=== PATIENT | male | born 1980 ===

== ENCOUNTER 2019-04-02 19:06 | Emergency (ER) | payer OTHER ==
[2019-04-02] MEDS ORDERED: Sodium Chloride 0.9% 1,000 ML IV STA (20:05)
[2019-04-02 20:43] LABS: BASO % 0.1 % (0.0-2.0); HEMOGLOBIN 15.3 g/dL (12.0-18.0); INR 1.2; LYMPH # 0.7 K/uL (1.0-4.3); LYMPH % 5.1 % (20.0-40.0); MEAN CELL VOLUME 85.9 fl (80.0-94.0); MEAN CORPUSCULAR HEMOGLOBIN 29.3 pg (27.0-31.0); MONO # 0.7 K/uL (0.0-0.8); MONO % 5.5 % (0.0-10.0); NEUT # 11.7 K/uL (1.8-7.0); NEUT % 89.3 % (50.0-75.0); PLATELET COUNT 238 K/uL (130-400); PROTHROMBIN TIME 13.4 Seconds (9.8-13.1); RBC 5.23 Mil/uL (4.40-5.90); RED CELL DISTRIBUTION WIDTH 14.7 % (11.5-14.5)
[2019-04-02 20:44] LABS: VENOUS BLOOD GAS BASE EXCESS 3.5 mmol/L (0.0-2.0); VENOUS BLOOD GAS PCO2 47 mmHg (40-60); VENOUS BLOOD GAS PO2 19 mm/Hg (30-55)
[2019-04-02 20:46] LABS: PARTIAL THROMBOPLASTIN TIME 30.4 Seconds (25.6-37.1)
[2019-04-02 20:48] LABS: ALB/GLOB RATIO 1.5 (1.0-2.1); ALBUMIN 4.7 g/dL (3.5-5.0); ALT/SGPT 24 U/L (21-72); AST/SGOT 20 U/L (17-59); BLOOD UREA NITROGEN 13 mg/dl (9-20); GFR NON-AFRICAN AMERICAN > 60
[2019-04-02 20:55] LABS: SQUAMOUS EPITHIAL < 1 /hpf (0-5); URINE BACTERIA RARE (<OCC); URINE BILIRUBIN NEGATIVE (NEGATIVE); URINE BLOOD SMALL (NEGATIVE); URINE CLARITY SLIGHTY-CLOUDY (Clear); URINE COLOR YELLOW (YELLOW); URINE GLUCOSE (UA) NEG (NEGATIVE); URINE LEUKOCYTE ESTERASE NEG Leu/uL (Negative); URINE PROTEIN NEGATIVE (NEGATIVE); URINE UROBILINOGEN 0.2-1.0 mg/dL (0.2-1.0)
[2019-04-02] MEDS ORDERED: Iohexol 300 100 ML IJ ONE (20:55)
[2019-04-02] MEDS ORDERED: Sodium Chloride 0.9% 50 ML IV ONE (20:56)
--- NOTE | 2019-04-02 21:03 | ED PDOC ---
HPI: General Adult Time Seen by Provider: 04/02/19 19:10 Chief Complaint (Nursing): Fever Chief Complaint (Provider): Headache, fever History Per: Patient History/Exam Limitations: no limitations Onset/Duration Of Symptoms: Days Have you had recent travel within the past 21 days to any of the following count [place]: [place], [place], [place] or [place]?: No Current Symptoms Are (Timing): Still Present Additional Complaint(s): 38yo male, with history of CVA (while in [place]), comes to ER reporting a headache x 2 weeks.. Patient reports his current headache and sore throat is associated with fever, and minimal intermittent numbness in his left arm which has resolved. Patient denies any weakness, vomiting or diarrhea. He reports some sore throat with swallowing and bodyaches as well. Patient denies any nausea, vomiting or diarrhea. No additional complaints. Past Medical History Reviewed: Historical Data, Nursing Documentation, Vital Signs Vital Signs: Last Vital Signs Temp 102.2 F H 04/02/19 20:33 Pulse 138 H 04/02/19 19:12 Resp 20 04/02/19 19:12 BP 123/73 04/02/19 19:12 Pulse Ox 95 04/02/19 19:12 Primary Care Provider: FAMILY PROVIDER,NO - Medical History PMH: CVA - Surgical History Surgical History: No Surg Hx - Family History Family History: States: No Known Family Hx - Social History Current smoker - smoking cessation education provided: No Alcohol: None Drugs: Denies - Home Medications Home Medications: Ambulatory Orders Medication Instructions Recorded Amoxicillin/Clavulanate [Augmentin 1 tab PO BID #20 tab 04/02/19 875 MG-125 MG] - Allergies Allergies/Adverse Reactions: Allergies Allergy/AdvReac Type Severity Reaction Status Date / Time No Known Allergies Allergy Verified 04/02/19 19:17 Review of Systems ROS Statement: Except As Marked, All Systems Reviewed And Found Negative Constitutional: Positive for: Fever ENT: Positive for: Throat Pain Gastrointestinal: Negative for: Nausea, Vomiting, Diarrhea Musculoskeletal: Negative for: Neck Pain Neurological: Positive for: Numbness (intermittently in left arm), Headache. Negative for: Weakness Physical Exam - Reviewed Nursing Documentation Reviewed: Yes Vital Signs Reviewed: Yes (febrile, tachy) - Physical Exam Appears: Positive for: Non-toxic, No Acute Distress (appears comforable in no distress) Head Exam: Positive for: ATRAUMATIC, NORMAL INSPECTION, NORMOCEPHALIC Skin: Positive for: Normal Color, Warm, DRY Eye Exam: Positive for: EOMI, Normal appearance, PERRL ENT: Positive for: Normal ENT Inspection Neck: Positive for: Normal, Painless ROM, Supple. Negative for: Pain On Movement Of Neck Cardiovascular/Chest: Positive for: Tachycardia Respiratory: Positive for: Normal Breath Sounds. Negative for: Respiratory Dist ress Gastrointestinal/Abdominal: Positive for: Normal Exam, Soft Back: Positive for: Normal Inspection Extremity: Positive for: Normal ROM Neurological/Psych: Positive for: Awake, Alert, Normal Tone, Symmetric/Intact Strength, Cerebellar Tests (normal), underwriter mortgage loan II-XII (intact). Negative for: Motor/Sensory Deficits - Laboratory Results Result Diagrams: 04/02/19:04/02/19:33 Lab Results: pO2 19 mm/Hg (30-55) L 04/02/19 20:40 VBG pH 7.40 (7.32-7.43) 04/02/19 20:40 VBG pCO2 47 mmHg (40-60) 04/02/19 20:40 VBG HCO3 25.8 mmol/L 04/02/19 20:40 VBG Total CO2 30.5 mmol/L (22-28) H 04/02/19 20:40 VBG O2 Sat (Calc) 50.8 % (40-65) 04/02/19 20:40 VBG Base Excess 3.5 mmol/L (0.0-2.0) H 04/02/19 20:40 VBG Potassium 3.7 mmol/L (3.6-5.2) 04/02/19 20:40 Sodium 137.0 mmol/L (132-148) 04/02/19 20:40 Chloride 104.0 mmol/L (98-107) 04/02/19 20:40 Glucose 119 mg/dL (75-110) H 04/02/19 20:40 Lactate 1.3 mmol/L (0.7-2.1) 04/02/19 20:40 FiO2 21.0 % 04/02/19 20:40 PT 13.4 Seconds (9.8-13.1) H 04/02/19: INR 1.2 05/20/19 20:33 APTT 30.4 Seconds (25.6-37.1) 04/02/19 20:33 Total Bilirubin 0.4 mg/dl (0.2-1.3) 04/02/19 20:33 AST 20 U/L (17-59) 04/02/19 20:33 ALT 24 U/L (21-72) 04/02/19 20:33 Alkaline Phosphatase 59 U/L (38-126) 04/02/19 20: Total Protein 7.9 G/DL (6.3-8.2) 04/02/19 20:33 Albumin 4.7 g/dL (3.5-5.0) 04/02/19: Globulin 3.2 gm/dL (2.2-3.9) 04/02/19 20: Albumin/Globulin Ratio 1.5 (1.0-2.1) 04/02/19 20:33 - ECG O2 Sat by Pulse Oximetry: 95 (RA) Pulse Ox Interpretation: Normal Medical Decision Making Medical Decision Making: Impression: Headache, fever , sore throat rule out strep, flu, intracranial abnormality Plan: -- Labs -- CT HEad w/o contrast -- Rapid flu -- Rapid strep -- Tylenol 975mg PO -- IV Fluids 2110 Rapid strep positive 2146 CT Head FINDINGS: BRAIN No acute intraparenchymal hemorrhage. No mass lesion. No abnormal enhancement. No CT evidence for acute territorial infarct. No midline shift or extra-axial collections. VENTRICLES: No hydrocephalus. ORBITS: The orbits are unremarkable. SINUSES AND MASTOIDS: The paranasal sinuses and mastoid air cells are clear. BONES: No fracture. IMPRESSION: No acute intracranial abnormality. 2241 lactic acid normal Labs reviewed, patient with low phosphorous and was given Neutra-Phos PO Patient given toradol for pain relief, reports feeling better, headache gone first does abx given here Stable for discharge home, informed to take augmentin as prescribed Patient informed to follow up at clinic in 1-2 days; return precautions given. vital improved. Scribe Attestation: Documented by Agnieszka Barnard acting as a scribe for Shayla Lazo MD. Provider Scribe Attestation: All medical record entries made by the Scribe were at my direction and personally dictated by me. I have reviewed the chart and agree that the record accurately reflects my personal performance of the history, physical exam, medical decision making, and the department course for this patient. I have also personally directed, reviewed, and agree with the discharge instructions and disposition. Disposition - Clinical Impression Clinical Impression: Strep pharyngitis - Patient ED Disposition Is Patient to be Admitted: No Counseled Patient/Family Regarding: Studies Performed, Diagnosis, Need For Followup - Disposition Referrals: [facility] [Outside] [facility] [Outside] Disposition: Routine/Home Disposition Time: 22:15 Condition: IMPROVED Additional Instructions: follow up in the clinic in 2 days return to the ED with any worsening or concerning symptoms Prescriptions: Amoxicillin/Clavulanate [Augmentin 875 MG-125 MG] 1 tab PO BID #20 tab Instructions: Strep Throat (DC) Forms: [employer] (Kazakh) Print Language: TAJIK
[2019-04-02 21:13] LABS: LYMPHOCYTE 7 % (20-50); MONOCYTE 5 % (0-10); TOTAL CELLS COUNTED 100
[2019-04-02 21:14] LABS: NEUTROPHIL 88 % (42-75); PLATELET ESTIMATE NORMAL (NORMAL)
[2019-04-02] MEDS ORDERED: Amoxicillin-Clav 875-125 mg Tab PO STA (21:22)
[2019-04-02] MEDS ORDERED: Amoxicillin-Clav 875-125 mg Tab PO ONE (22:11)
[2019-04-02] MEDS ORDERED: Potassium & Sodium Phosphate PO STA (22:35)
[2019-04-02 23:52] VITALS: BP 111/70; PULSE 97; RESP 18; TEMP 99.1
[2019-04-03 04:22] VITALS: O2SAT 95
--- NOTE | 2019-04-03 08:35 | CT ---
Date of service: 04/02/2019 PROCEDURE: CT HEAD WITH AND WITHOUT CONTRAST HISTORY: headache for two weeks COMPARISON: None available. TECHNIQUE: Axial computed tomography images were obtained through the head/brain with and without intravenous contrast enhancement. Contrast dose: 90 cc Omnipaque 300 Radiation dose: Total exam DLP = 1371.09 mGy-cm. This CT exam was performed using one or more of the following dose reduction techniques: Automated exposure control, adjustment of the mA and/or kV according to patient size, and/or use of iterative reconstruction technique. FINDINGS: HEMORRHAGE: No intracranial hemorrhage. BRAIN: No mass, mass effect or edema. No abnormal intracranial enhancement. No atrophy or chronic microvascular ischemic changes. VENTRICLES: Unremarkable. No hydrocephalus. CALVARIUM: Unremarkable. SINUSES: Unremarkable as visualized. No significant inflammatory changes. MASTOID AIR CELLS: Unremarkable as visualized. No mastoid effusion. OTHER FINDINGS: None. IMPRESSION: Normal pre and post contrast enhanced CT of the head. The preliminary findings for this examination were reported by [facility] at 9:16 p.m. on 04/02/2019. There is concurrence of this report with the preliminary findings.
--- NOTE | 2019-04-03 12:32 | RAD ---
Date of service: 04/02/2019 HISTORY: Sepsis Patient COMPARISON: No prior. FINDINGS: LUNGS: No active pulmonary disease. PLEURA: No significant pleural effusion identified, no pneumothorax apparent. CARDIOVASCULAR: No atherosclerotic calcification present Normal. OSSEOUS STRUCTURES: No significant abnormalities. VISUALIZED UPPER ABDOMEN: Normal. OTHER FINDINGS: None. IMPRESSION: No active disease.
--- NOTE | 2019-04-03 17:04 | CARD ---
APPROVED REPORT Date of service: 04/02/2019 EKG Measurement Heart [id number] <Conclusion> Sinus tachycardia Otherwise normal ECG
== END 2019-04-02 23:51 | disposition home or self-care (01) ==
LOC: H.ER 19:06
DX: J02.0 Streptococcal pharyngitis (principal)
CPT/HCPCS: 70470; 71045; 80053; 81003; 82803; 83735; 84100; 85025; 85610; 85730; 87040; 87086; 87149; 87430; 87804; 93005; 96360; 99284; J1885; J7030; Q9967

== ENCOUNTER 2019-04-04 18:48 | Emergency (ER) | payer OTHER ==
[2019-04-04 19:18] VITALS: O2SAT 99
[2019-04-04 20:38] LABS: BASO % 0.7 % (0.0-2.0); EOS # 0.1 K/uL (0.0-0.7); EOS % 1.8 % (0.0-4.0); HEMOGLOBIN 15.3 g/dL (12.0-18.0); MEAN CELL VOLUME 86.2 fl (80.0-94.0); MEAN CORPUSCULAR HGB CONC 33.7 g/dL (33.0-37.0); MEAN PLATELET VOLUME 7.9 fl (7.2-11.7); MONO # 0.9 K/uL (0.0-0.8); MONO % 13.8 % (0.0-10.0); NEUT # 3.4 K/uL (1.8-7.0); NEUT % 52.7 % (50.0-75.0); RBC 5.27 Mil/uL (4.40-5.90); RED CELL DISTRIBUTION WIDTH 14.3 % (11.5-14.5); WHITE BLOOD COUNT 6.5 K/uL (4.8-10.8)
[2019-04-04 21:16] LABS: BLOOD UREA NITROGEN 11 mg/dl (9-20); CALCIUM 9.5 mg/dL (8.4-10.2); GFR NON-AFRICAN AMERICAN > 60
--- NOTE | 2019-04-04 21:50 | ED PDOC ---
HPI: General Adult Time Seen by Provider: 04/04/19 19:27 Chief Complaint (Nursing): Abnormal Labs Chief Complaint (Provider): Abnormal Labs History Per: Patient History/Exam Limitations: no limitations Current Symptoms Are (Timing): Still Present Additional Complaint(s): 38 year old male presents to the ED for evaluation of abnormal labs. Patient reports he as called into the ED because his blood cultures that were taken during his last visit were positive for strep throat. Patient was seen in this ED on April 02 for sore throat and fever. He was then discharged on Amoxicillin which he reports compliance. Patient reports improvement of symptoms. Denies fever and headache. PMD: none provided Past Medical History Reviewed: Historical Data, Nursing Documentation, Vital Signs Vital Signs: Last Vital Signs Temp 98.6 F 04/04/19 19:15 Pulse 70 04/04/19 19:15 Resp 18 04/04/19 19:15 BP 135/73 04/04/19 19:15 Pulse Ox 99 04/04/19 19:15 Primary Care Provider: FAMILY PROVIDER,NO - Medical History PMH: CVA - Surgical History Surgical History: No Surg Hx - Family History Family History: States: Unknown Family Hx - Home Medications Home Medications: Ambulatory Orders Medication Instructions Recorded Amoxicillin/Clavulanate [Augmentin 1 tab PO BID #20 tab 04/02/19 875 MG-125 MG] - Allergies Allergies/Adverse Reactions: Allergies Allergy/AdvReac Type Severity Reaction Status Date / Time No Known Allergies Allergy Verified 04/04/19 19:18 Review of Systems ROS Statement: Except As Marked, All Systems Reviewed And Found Negative Constitutional: Negative for: Fever ENT: Negative for: Throat Pain Neurological: Negative for: Headache Physical Exam - Reviewed Nursing Documentation Reviewed: Yes Vital Signs Reviewed: Yes - Physical Exam Appears: Positive for: Non-toxic, No Acute Distress Head Exam: Positive for: ATRAUMATIC, NORMAL INSPECTION, NORMOCEPHALIC Skin: Positive for: Normal Color, Warm, Dry Eye Exam: Positive for: EOMI, Normal appearance, PERRL Neck: Positive for: Normal, Painless ROM, Supple Cardiovascular/Chest: Positive for: Regular Rate, Rhythm. Negative for: Murmur Respiratory: Positive for: Normal Breath Sounds. Negative for: Respiratory Distress Gastrointestinal/Abdominal: Positive for: Normal Exam, Soft. Negative for: Tenderness Back: Positive for: Normal Inspection. Negative for: L CVA Tenderness, R CVA Tenderness Extremity: Positive for: Normal ROM. Negative for: Deformity Neurological/Psych: Positive for: Awake, Alert, Normal Tone, Oriented. Negative for: Motor/Sensory Deficits - Laboratory Results Result Diagrams: 04/04/19 19:50 04/04/19 20:15 - ECG O2 Sat by Pulse Oximetry: 99 (RA) Pulse Ox Interpretation: Normal Medical Decision Making Medical Decision Makin:09 Impression: positive blood cultures Initial Plan: --Blood culture -- Scribe Attestation: Documented by Jenna Walden, acting as a scribe for Leonora Davis MD. Provider Scribe Attestation: All medical record entries made by the Scribe were at my direction and personally dictated by me. I have reviewed the chart and agree that the record accurately reflects my personal performance of the history, physical exam, medical decision making, and the department course for this patient. I have also personally directed, reviewed, and agree with the discharge instructions and disposition. Disposition - Clinical Impression Clinical Impression: Left against medical advice, Strep pharyngitis, Positive blood cultures - Disposition Referrals: [facility] [Outside] Additional Instructions: RAZIA LOVING, thank you for letting us take care of you today. Your provider was Leonora Davis MD and you were treated for PCP FOLLOW UP. The emergency medical care you received today was directed at your acute symptoms. If you were prescribed any medication, please fill it and take as directed. It may take several days for your symptoms to resolve. Return to the Emergency Department if your symptoms worsen, do not improve, or if you have any other problems. Please contact your doctor or call one of the physicians/clinics you have been referred to that are listed on the Patient Visit Information form that is included in your discharge packet. Bring any paperwork you were given at discharge with you along with any medications you are taking to your follow up visit. Our treatment cannot replace ongoing medical care by a primary care provider outside of the emergency department. Thank you for allowing the [facility] team to be part of your care today. If you had an X-Ray or CT scan: A Radiologist will review the ED reading if any change in treatment is needed we will contact you. If you had a blood, urine, or wound culture: It will take several days for the results, if any change in treatment is needed we will contact you. Instructions: Strep Throat (DC), Leaving Against Medical Advice Forms: [employer] (Icelandic) Print Language: URDU
[2019-04-04 22:41] VITALS: BP 133/78; PULSE 83; RESP 17; TEMP 98
== END 2019-04-04 22:00 | disposition left against medical advice (07) ==
LOC: H.ER 18:48
DX: J02.0 Streptococcal pharyngitis (principal); R78.81 Bacteremia; Z86.73 Personal history of transient ischemic attack (TIA), and cerebral infarction without residual deficits